=== PATIENT | male | born 1955 | race Caucasian/White ===

== ENCOUNTER 2021-02-21 10:24 | Emergency (ER) | payer MEDICARE, OTHER ==
[~2021-02-21] VITALS: Ht 165.1 cm; Wt 82.0 kg
[2021-02-21] MEDS ORDERED: IV NORMAL SALINE 1,000ML 1,000 ML IV ONE (11:00)
[2021-02-21 11:11] LABS: BASO # 0.1 x10^3/uL (0.0-0.2); BASO % 1 % (0-3); EOS # 0.1 x10^3/uL (0.0-0.7); EOS % 1 % (0-3); HEMATOCRIT 46.3 % (39.0-53.0); HEMOGLOBIN 15.9 g/dL (13.0-17.5); LYMPH # 2.5 x10^3/uL (1.0-4.8); LYMPH % 29 % (24-48); MEAN CORPUSCULAR HEMOGLOBIN 32 pg (25-35); MEAN CORPUSCULAR HGB CONC 34 g/dL (31-37); MEAN CORPUSCULAR VOLUME 92 fL (79-100); MONO # 0.7 x10^3/uL (0.0-1.1); MONO % 8 % (0-9); NEUT # 5.2 x10^3uL (1.8-7.7); NEUT % 61 % (31-73); PLATELET COUNT 156 x10^3/uL (140-400); RED BLOOD COUNT 5.03 x10^6/uL (4.30-5.70); RED CELL DISTRIBUTION WIDTH 12.6 % (11.5-14.5); WHITE BLOOD COUNT 8.6 x10^3/uL (4.0-11.0)
[2021-02-21 11:18] LABS: CREATININE 1.2 mg/dL (0.7-1.3); GFR 60.8; POTASSIUM 4.7 mmol/L (3.5-5.1)
[2021-02-21 11:24] LABS: ALBUMIN 3.9 g/dL (3.4-5.0); ALBUMIN/GLOBULIN RATIO 1.1 (1.0-1.7); TOTAL BILIRUBIN 0.6 mg/dL (0.2-1.0); TOTAL PROTEIN 7.4 g/dL (6.4-8.2)
[2021-02-21] MEDS ORDERED: IOHEXOL 300 MG/ML 75 ML VIAL. IV ONE (11:30)
[2021-02-21] MEDS ORDERED: IOHEXOL 300 MG/ML 75 ML VIAL. ONE (11:30)
--- NOTE | 2021-02-21 12:02 | PHYS DOC ---
Past History Additional Past Medical Histor: Patient poor historian Past Surgical History: Cholecystectomy Additional Past Surgical Histo: fisutla remved between bladder and colon Alcohol Use: Occasionally General Adult EDM: Chief Complaint: RECTAL BLEED HPI: HPI: 65-year-old male past medical history of CAD on Ranexa, hypertension, hyperlipidemia, and history of colovesicular fistula repaired in October 2019 at , presents the ED with complaints of bright red blood after wiping the past 2 days. States he noticed bright red blood mixed in with his stool today. No history of blood transfusions or GI bleeds. Reports history of EGD, colonoscopy, uroscopy and multiple imaging studies at in October. No known history of radiation, parasitic infections, diverticulitis, inflammatory bowel disease including ulcerative colitis or Crohn's. Pt states he's been in the [employer] and he "loves [employer]," that he trusts physicians but not the covid vaccine, it has covid in it. 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 Denies any parasitic diseases, no known h/o cancer - no weight loss or night sweats. On no anticoagulants "look at the medication list I gave to the nurse." Does report intermittent LLQ cramping. Review of Systems: Review of Systems: Constitutional: Denies fever or chills Eyes: Denies change in visual acuity or drainage HENT: Denies nasal congestion or sore throat Respiratory: Denies cough or shortness of breath Cardiovascular: Denies chest pain or edema or syncope GI: Denies nausea, vomiting, or melena : Denies dysuria or hematuria Musculoskeletal: Denies back pain or joint pain Integument: Denies rash or diaphoresis Neurologic: Denies headache, focal weakness or sensory changes Endocrine: Denies polyuria or polydipsia Lymphatic: Denies swollen glands Psychiatric: Denies depression or anxiety Current Medications: Current Meds: Current Medications Medications (Trade) Dose Ordered Sig/Edgard Start Time Stop Time Status Last Admin Dose Admin Iohexol (Omnipaque 300 Mg/ml) 75 ml STK-MED ONCE 02/21/21 11:30 02/21/21 11:30 DC Sodium Chloride 1,000 ml @ 1,000 mls/hr 1X ONCE 02/21/21 11:00 02/21/21 11:59 DC 7/21/21 11:06 1,000 MLS/HR Allergies: Allergies: Allergies Coded Allergies Type Severity Reaction Last Updated Verified morphine Allergy Unknown 02/21/21 Yes povidone-iodine Allergy Unknown 02/21/21 Yes soap Allergy Unknown 02/21/21 Yes Physical Exam: PE: Constitutional: Well developed, well nourished, no acute distress, non-toxic appearance. HENT: Normocephalic, atraumatic, Eyes: EOMI, conjunctiva normal, no discharge. Neck: Normal range of motion, supple, Cardiovascular: S1/2 present, regular rhythm Lungs & Thorax: Speaking in full sentences, bilateral equal chest rise, no tachypnea or increased work of breathing Abdomen: soft, no focal tenderness, no rigidity or guarding, Skin: Warm, dry, Extremities: No tenderness, no cyanosis, no lower extremity edema Neurologic: Alert and oriented X 3, normal motor function, normal sensory function, no focal deficits noted. [] Psychologic: Affect normal, judgement normal, mood normal-smiling/joyful Rectal exam: Chaperoned by RN, no obvious anal fissures or external hemorrhoids, no stool in rectal vault, small amount of bright red blood on BEV exam, no brisk bleeding, tolerated exam well with minimal/no discomfort Current Patient Data: Labs: Laboratory Tests Test 02/21/21 10:58 White Blood Count 8.6 x10^3/uL (4.0-11.0) Red Blood Count 5.03 x10^6/uL (4.30-5.70) Hemoglobin 15.9 g/dL (13.0-17.5) Hematocrit 46.3 % (39.0-53.0) Mean Corpuscular Volume 92 fL (79-100) Mean Corpuscular Hemoglobin 32 pg (25-35) Mean Corpuscular Hemoglobin Concent 34 g/dL (31-37) Red Cell Distribution Width 12.6 % (11.5-14.5) Platelet Count 156 x10^3/uL (140-400) Neutrophils (%) (Auto) 61 % (31-73) Lymphocytes (%) (Auto) 29 % (24-48) Monocytes (%) (Auto) 8 % (0-9) Eosinophils (%) (Auto) 1 % (0-3) Basophils (%) (Auto) 1 % (0-3) Neutrophils # (Auto) 5.2 x10^3uL (1.8-7.7) Lymphocytes # (Auto) 2.5 x10^3/uL (1.0-4.8) Monocytes # (Auto) 0.7 x10^3/uL (0.0-1.1) Eosinophils # (Auto) 0.1 x10^3/uL (0.0-0.7) Basophils # (Auto) 0.1 x10^3/uL (0.0-0.2) Prothrombin Time 9.6 SEC (9.4-11.4) Prothrombin Time INR 0.9 (0.9-1.1) Activated Partial Thromboplast Time 25 SEC (23-33) Sodium Level 139 mmol/L (136-145) Potassium Level 4.7 mmol/L (3.5-5.1) Chloride Level 101 mmol/L (98-107) Carbon Dioxide Level 29 mmol/L (21-32) Anion Gap 9 (6-14) Blood Urea Nitrogen 12 mg/dL (8-26) Creatinine 1.2 mg/dL (0.7-1.3) Estimated GFR (Cockcroft-Gault) 60.8 BUN/Creatinine Ratio 10 (6-20) Glucose Level 145 mg/dL (70-99) H Calcium Level 9.0 mg/dL (8.5-10.1) Total Bilirubin 0.6 mg/dL (0.2-1.0) Aspartate Amino Transferase (AST) 15 U/L (15-37) Alanine Aminotransferase (ALT) 27 U/L (16-63) Alkaline Phosphatase 60 U/L (46-116) Total Protein 7.4 g/dL (6.4-8.2) Albumin 3.9 g/dL (3.4-5.0) Albumin/Globulin Ratio 1.1 (1.0-1.7) Vital Signs: Vital Signs Date Time Temp Pulse Resp B/P (MAP) Pulse Ox O2 Delivery O2 Flow Rate FiO2 02/21/21 10:29 97.9 91 16 147/100 99 EKG: EKG: [] Radiology/Procedures: Radiology/Procedures: IMAGING REPORT Signed PATIENT: ANU WEAVER ACCOUNT: [id number] : 1955 LOCATION: ER AGE: 65 SEX: M EXAM STATUS: REG ER ORD. PHYSICIAN: EDGARD MATA DO REASON: llq pain, rectal bleeding. 75mls omni 300 PROCEDURE: CT ABD PELV W/ IV CONTRST ONLY INDICATION: Reason: llq pain, rectal bleeding. 75mls omni 300 / Spl. Instructions: / History: . COMPARISON: None. TECHNIQUE: Axial CT images obtained through the abdomen and pelvis with contrast. One or more of the following individualized dose reduction techniques were utilized for this examination: 1. Automated exposure control; 2. Adjustment of the mA and/or kV according to patient size; 3. Use of iterative reconstruction technique. FINDINGS: Right hip arthroplasty. Degenerative changes left hip. Degenerative changes of the spine. Coronary artery calcific atherosclerosis. Severe atherosclerotic disease. Fat-containing inguinal hernias. Right hip arthroplasty. Postcholecystectomy with mild prominence of bile ducts which is commonly seen postoperatively. Liver appears mildly low density. Nonspecific but can be seen with fatty infiltration. Duodenal diverticulum. Spleen unremarkable. No hydronephrosis. Urinary bladder is partially distended. Fat-containing lesion left upper leg musculature could be from lipoma. Multiple bilateral renal cystic lesions. Postoperative changes to the distal colon. No periappendiceal inflammatory changes. Degenerative changes spine. Mildly prominent loops of small bowel without high-grade transition point to suggest obstruction. Multilevel central canal and neural foraminal stenosis. IMPRESSION: * No evidence of appendicitis. * No definite CT evidence of colitis. * Renal cystic lesions bilaterally Electronically signed by: Ted Montes MD (02/21/2021 12:19 PM) DESKTOP- [id number] DICTATED AND SIGNED BY: TED MONTES MD DATE: 02/21/21 1208 CC: PCP,NO; EDGARD MATA DO ~MTH0 0 Impressions: [place] score for safe discharge for lower GI bleeding = 96 % Probability of safe discharge (absence of rebleeding, blood transfusion, therapeutic intervention, 28 day readmission, or ). Consider discharge, with appropriate precautions. If melena were present, GBS score 0 points A GBS of 0 is a Low Risk GI bleed, and is highly sensitive (99.6% in a 2007 retrospective study) for predicting which patients did not require any medical intervention: blood transfusion, endoscopy, or surgery. This was confirmed in a 2009 Lancet study where patients with a score of 0 were actually discharged and had no GI bleeding mortality at 6 month followup Heart Score: C/O Chest Pain: No Risk Factors: Risk Factors: DM, Current or recent (<one month) smoker, HTN, HLP, family history of CAD, obesity. Risk Scores: Score 0 - 3: 2.5% MACE over next 6 weeks - Discharge Home Score 4 - 6: 20.3% MACE over next 6 weeks - Admit for Clinical Observation Score 7 - 10: 72.7% MACE over next 6 weeks - Early Invasive Strategies Course & Med Decision Making: Course & Med Decision Making Pertinent Labs and Imaging studies reviewed. (See chart for details) Concern for hematochezia in a very well-appearing male, first episode. Patient is not on anticoagulants. H/H 15/36 with no thrombocytopenia, normal coags. Patient well-appearing, hemodynamically stable. Rectal exam with minimal blood, no pain with BEV-suspect internal hemorrhoids. CT imaging with no signs of diverticulitis or colitis. Given examination and risk factors I do not suspect patient requires any GI intervention at this time. Will discharge home with strict ED return precautions were given for persistent signs of GI bleeding including blood clots/multiple episodes/worsening of bleeding, exertional dyspnea, syncope or worsening pain. Encouraged urgent outpatient follow-up with PMD and GI for definitive management. Life-threatening processes were considered but are low suspicion at this time, given history, physical exam and ED workup. Pt was educated on all prescription medications and adverse effects. All patient's questions were answered and pt was stable at time of discharge. Life/limb-threatening differential includes but is not limited to, thrombocytopenia, drug related adverse event, posterior epistaxis, hemorrhagic shock, DIC, life-threatening rash, arterial injury or trauma. I have spoken with the patient and/or caregivers. I explained the patient's condition, diagnoses and treatment plan based on the information available to me at this time. I have answered the patient and/or caregiver's questions and addressed any concerns. The patient and/or caregivers have a good understanding of patient's diagnosis, condition and treatment plan as can be expected at this point. Vital signs have been stable. Patient's condition is stable and appropriate for discharge from the emergency department. Patient will pursue further outpatient evaluation with primary care physician or other designated or consulting physician as outlined in the discharge instructions. The patient and/or caregivers are agreeable to this plan of care and follow-up instructions have been explained in detail. The patient and/or caregivers have received these instructions in written form and have expressed an understanding of the discharge instructions. The patient and/or caregivers are aware that any significant change of condition or worsening of symptoms should prompt immediate return to this or the closest emergency department or call to 911. Jake Disclaimer: [employer] Disclaimer: This electronic medical record was generated, in whole or in part, using a voice recognition dictation system. Departure Departure: Impression: Primary Impression: Hematochezia Disposition: HOME / SELF CARE / HOMELESS Condition: STABLE Referrals: PCP,NO (PCP) [facility]-Dr. Tanner or Dr. Titus in 1 week for routine care [facility] [address], [address] [place] [address] Patient Instructions: Gastrointestinal Bleeding Additional Instructions: FOLLOW UP WITH GASTROENTEROLOGY: URGENT FOLLOWUP WITHIN 1-2 DAYS [facility] [address], [address] [place] [address] OR [facility] [address], [address], [place] [address] EDGARD MATA DO Feb 21, 2021 12:02
--- NOTE | 2021-02-21 12:21 | RAD ---
INDICATION: Reason: llq pain, rectal bleeding. 75mls omni 300 / Spl. Instructions: / History: . COMPARISON: None. TECHNIQUE: Axial CT images obtained through the abdomen and pelvis with contrast. One or more of the following individualized dose reduction techniques were utilized for this examinat ion: 1. Automated exposure control; 2. Adjustment of the mA and/or kV according to patient size; 3 . Use of iterative reconstruction technique. FINDINGS: Right hip arthroplasty. Degenerative changes left hip. Degenerative changes of the spine. Coronary artery calcific atherosclerosis. Severe atherosclerotic disease. Fat-containing inguinal hernias. Right hip arthroplasty. Postcholecystectomy with mild prominence of bile ducts which is commonly seen postoperatively. Liver appears mildly low density. Nonspecific but can be seen with fatty infiltration. Duodenal diverticulum. Spleen unremarkable. No hydronephrosis. Urinary bladder is partially distended. Fat-containing lesion left upper leg musculature could be from lipoma. Multiple bilateral renal cystic lesions. Postoperative changes to the distal colon. No periappendicea l inflammatory changes. Degenerative changes spine. Mildly prominent loops of small bowel without high-grade transition point to suggest obstruction. Multilevel central canal and neural foraminal stenosis. IMPRESSION: * No evidence of appendicitis. * No definite CT evidence of colitis. * Renal cystic lesions bilaterally Electronically signed by: Simeon Pearce MD (02/21/2021 12:19 PM) [id number]
[2021-02-21 12:39] VITALS: BP 132/74
== END 2021-02-21 12:55 | disposition home or self-care (01) ==
LOC: ER 10:24
DX: K92.1 Melena (principal); I10 Essential (primary) hypertension; E78.5 Hyperlipidemia, unspecified; I25.10 Atherosclerotic heart disease of native coronary artery without angina pectoris; Z88.5 Allergy status to narcotic agent; Z88.8 Allergy status to other drugs, medicaments and biological substances
CPT/HCPCS: 36415; 74177; 80053; 85025; 85610; 85730; 96360; 99285; J7030; Q9967